=== PATIENT | female | born 1955 | race Caucasian/White ===

== ENCOUNTER 2019-05-14 09:04 | Day surgery (SDC) | payer OTHER ==
[~2019-05-14] VITALS: Ht 172.7 cm; Wt 78.4 kg
--- NOTE | 2019-05-14 10:19 | NUR ---
05/14/19 1018 Teresa Tenorio LATE ENTRY:PT DECLINED ANTIBIOTICS, DR NELSON WAS INFORMED AND CANCELLED THE ORDER FOR ANTIBIOTICS PER PT REQUEST.
--- NOTE | 2019-05-14 12:35 | NUR ---
05/14/19 1235 Jonna Bright DELAYED ENTRY 1115 PT HAS ALLERGY TO ACETAMINOPHEN. PT STATES SHE DOES NOT DEVELOP A REACTION HOWEVER HER PRIMARY CARE INSTRUCTED HER NOT TO TAKE IT DUE TO LIVER DAMAGE. PT DIAGNOSED WITH PARDO BARRE. PT STATES ITS OK IF SHE TAKES IT ONCE IN A WHILE. PT RATES PAIN IN RIGHT HAND 3/10 IN SDU AND STATES "IT'S STARTING TO BOTHER ME." PT STATES SHE WOULD LIKE TO TAKE PO [place]CO PRIOR TO DISCHARGE. PT AWARE IT CONTAINS ACETAMINOPHEN. PT DENIES DR CHANGING SCRIPT. PT HOPES TO ONLY HAVE TO TAKE IT FOR A COUPLE DAYS THEN STOP.
== END 2019-05-14 11:32 | disposition home or self-care (01) ==
LOC: ORSCSDS 09:04
PROVIDERS: Orthopaedic Surgery
PROC: 01N50ZZ Release Median Nerve, Open Approach (ICD-10-PCS; principal; 2019-05-14 11:30)
DX: G56.01 Carpal tunnel syndrome, right upper limb (principal); F17.210 Nicotine dependence, cigarettes, uncomplicated
CPT/HCPCS: A9270-GY; J2250; J2704; J3010; J3370; J7120